=== PATIENT | male | born 1990 | race Two or more races ===

== ENCOUNTER 2018-06-07 01:12 | Emergency (ER) | payer OTHER ==
[~2018-06-07] VITALS: Ht 182.9 cm; Wt 102.5 kg
[2018-06-07 01:53] VITALS: BP 136/76
== END 2018-06-07 05:00 | disposition home or self-care (01) ==
LOC: ER 01:18
DX: S33.5XXA Sprain of ligaments of lumbar spine, initial encounter (principal); S63.502A Unspecified sprain of left wrist, initial encounter; Z91.013 Allergy to seafood; X50.1XXA Overexertion from prolonged static or awkward postures, initial encounter; Y93.89 Activity, other specified; Y92.69 Other specified industrial and construction area as the place of occurrence of the external cause; Y99.8 Other external cause status
CPT/HCPCS: 72100; 73100